=== PATIENT | female | born 1980 | race Caucasian/White ===

== ENCOUNTER 2017-01-12 15:30 | Emergency (ER) | payer OTHER ==
[~2017-01-12] VITALS: Ht 157.5 cm; Wt 69.4 kg
[~2017-01-12 15:30] MED LIST: ADDERALL20 MG PO; BACTRIM,SEPT1 TABLET PO; BACTROBAN NASAL1 G1 BOTH NARES; CARBAMAZEPINE100 MG PO; CLINDAMYCIN HC150 MG PO; CLONIDINE HCL0.1 MG PO; DOXYCYCLINE HYC50 MG PO; GABAPENTIN100 MG PO; LAMICTAL150 M1 PO; LAMICTAL25 MG PO; LEXAPRO20 MG PO; LOMOTIL TABLET1 EACH PO; MINOCYCLINE HCL50 MG PO; MOTRIN600 MG PO; MUPIROCIN22 GM TP; NAPROSYN500 MG PO; NUVIGIL250 MG PO; SERTRALINE HCL100 MG PO; SUBOXONE 8 MG-1 EAC2 SL; TORADOL10 MG PO; TRAZODONE HCL50 MG PO; ZOLOFT50 MG PO
[2017-01-12] MEDS ORDERED: FLEXERIL5 MG PO (17:33)
[2017-01-12] MEDS ORDERED: MOTRIN600 MG PO (17:33)
[2017-01-12 17:44] VITALS: BP 133/82
== END 2017-01-12 17:45 | disposition home or self-care (01) ==
LOC: EME 15:30
DX: S16.1XXA Strain of muscle, fascia and tendon at neck level, initial encounter (principal); S20.312A Abrasion of left front wall of thorax, initial encounter; V49.40XA Driver injured in collision with unspecified motor vehicles in traffic accident, initial encounter; F32.9 Major depressive disorder, single episode, unspecified; F17.200 Nicotine dependence, unspecified, uncomplicated
CPT/HCPCS: 71020; 72040; 99281; 99284